=== PATIENT | female | born 1945 | race Caucasian/White ===

== ENCOUNTER 2022-06-18 12:58 | Outpatient (CLI) | payer MEDICARE | END 2022-06-18 12:59 | disposition home or self-care (01) | LOC: SCSRAD 12:58 | PROVIDERS: ATTEND Family Medicine | DX: M54.16 Radiculopathy, lumbar region (principal); M51.37 Other intervertebral disc degeneration, lumbosacral region | CPT/HCPCS: 72100 ==

== ENCOUNTER 2022-06-30 10:04 | Outpatient (CLI) | payer MEDICARE | END 2022-06-30 10:05 | disposition home or self-care (01) | LOC: SCSMRI 10:04 | PROVIDERS: ATTEND Family Medicine | DX: M47.26 Other spondylosis with radiculopathy, lumbar region (principal); M51.16 Intervertebral disc disorders with radiculopathy, lumbar region; M48.061 Spinal stenosis, lumbar region without neurogenic claudication; K80.20 Calculus of gallbladder without cholecystitis without obstruction | CPT/HCPCS: 72148 ==

== ENCOUNTER 2023-10-01 12:38 | Outpatient (CLI) | payer MEDICARE | END 2023-10-01 12:39 | disposition home or self-care (01) | LOC: SCSMRI 12:38 | PROVIDERS: ATTEND Family Medicine | DX: M54.16 Radiculopathy, lumbar region (principal); M51.37 Other intervertebral disc degeneration, lumbosacral region | CPT/HCPCS: 72148 ==